=== PATIENT | male | born 1990 | race Caucasian/White ===

== ENCOUNTER 2021-03-15 09:18 | Emergency (ER) | payer OTHER ==
[2021-03-15 09:34] VITALS: BP 130/67
[2021-03-15] MEDS ORDERED: FAMOTIDINE 20 MG TABLET PO STA (09:40)
[2021-03-15] MEDS ORDERED: predniSONE 20 MG TABLET PO STA (09:40)
--- NOTE | 2021-03-15 10:08 | ED Physician Documentation ---
PD HPI SKIN - Stated complaint Stated Complaint: BODY RASH - Chief complaint Chief Complaint: Allergic Rx - History obtained from History obtained from: Patient - Additional information Additional information: Patient complains of rash and itching for the last 2 days. He states it is mainly on his trunk and he has no idea what he is reacting to. He is not on any new medications and has not eaten any unusual foods recently. No other exposures that he can think of. Patient states his throat has felt a little itchy and tight but that he took some Benadryl this morning and it seemed to help with the sensation. It did not take the rash away entirely. No other complaints at this time. No fevers or chills. No nausea or vomiting. No shortness of breath. No swelling of Face or mouth. Review of Systems Ten Systems: 10 systems reviewed and negative Constitutional: reports: Reviewed and negative Eyes: reports: Reviewed and negative Ears: reports: Reviewed and negative Nose: reports: Reviewed and negative Throat: reports: Other (Throat tightness) Cardiac: reports: Reviewed and negative Respiratory: reports: Reviewed and negative GI: reports: Reviewed and negative : reports: Reviewed and negative Skin: reports: Rash Musculoskeletal: reports: Reviewed and negative Neurologic: reports: Reviewed and negative Psychiatric: reports: Reviewed and negative Endocrine: reports: Reviewed and negative Immunocompromised: reports: Reviewed and negative PD PAST MEDICAL HISTORY - Past Medical History Past Medical History: No Cardiovascular: None Respiratory: None Neuro: None Endocrine/Autoimmune: None GI: None : None HEENT: None Psych: None Musculoskeletal: None - Past Surgical History Past Surgical History: No - Present Medications Home Medications: Ambulatory Orders Medication Instructions Recorded Confirmed predniSONE [Deltasone] 60 mg PO DAILY 5 Days #15 tablet 03/15/21 - Allergies Allergies/Adverse Reactions: Allergies Allergy/AdvReac Type Severity Reaction Status Date / Time No Known Drug Allergies Allergy Verified 03/15/21 09:31 - Social History Does the pt smoke?: No Smoking Status: Never smoker Does the pt drink ETOH?: Yes Does the pt have substance abuse?: No - Immunizations Immunizations are current?: Yes PD ED PE NORMAL - Vitals Vital signs reviewed: Yes - General General: Alert and oriented X 3, No acute distress - HEENT HEENT: Atraumatic, PERRL, EOMI, Moist mucous membranes, Pharynx benign - Neck Neck: Supple, no meningeal sign - Cardiac Cardiac: RRR, No murmur - Respiratory Respiratory: No respiratory distress, Clear bilaterally - Derm Derm: Normal color, Warm and dry, Other (Maculopapular rash, fine, with occasional petechiae. Involves trunk only.) - Extremities Extremities: No deformity, No edema - Neuro Neuro: Alert and oriented X 3 - Psych Psych: Normal mood, Normal affect Results - Vitals Vitals: Vital Signs - 24 hr 03/15/21 09:31 Temperature 36.8 C Heart Rate 70 Respiratory 16 Rate Blood Pressure 130/67 O2 Saturation 98 Oxygen O2 Source Room air PD MEDICAL DECISION MAKING - ED course Complexity details: considered differential, d/w patient ED course: Patient was given a dose of prednisone and of Pepcid in the emergency department. He already has Benadryl at home, which she has taken. I am not sure what is reacting to, and he does seem to have potentially a little element of vasculitis along with this. I discussed with the patient the most likely, this will blow over on its own, as I do not find any evidence of a more serious condition causing the symptoms. However, he should take the prednisone as prescribed, as well as the In the nextBenadryl, and if symptoms are not better in few days, he should follow-up at [facility]. We have discussed the usual indications for return Departure - Departure Disposition: 01 Home, Self Care Clinical Impression: Allergic reaction Qualifiers: Encounter type: initial encounter Qualified Code(s): T78.40XA - Allergy, unspecified, initial encounter Condition: Stable Instructions: ED Allergic Reaction General Other Prescriptions: predniSONE [Deltasone] 60 mg PO DAILY 5 Days #15 tablet Comments: It is not clear exactly what you may be reacting to, but your symptoms, along with the lack of other specific symptoms of concern, are most indicative of a reaction of some sort. Please take the prednisone on a daily basis for the next several days, as prescribed. You may take Benadryl with this as well. Please follow-up in [facility] at the end of the week if you are not doing better. Discharge Date/Time: 03/15/21 10:20
== END 2021-03-15 10:20 | disposition home or self-care (01) ==
LOC: ED 09:18
DX: T78.40XA Allergy, unspecified, initial encounter (principal); R21 Rash and other nonspecific skin eruption; R23.3 Spontaneous ecchymoses; X58.XXXA Exposure to other specified factors, initial encounter
CPT/HCPCS: 99282; 99284; A9270; J7512

== ENCOUNTER 2021-06-05 13:18 | Outpatient (CLI) | payer OTHER | END 2021-06-05 13:19 | disposition home or self-care (01) | LOC: RT 13:18 | PROVIDERS: ATTEND Family Medicine | DX: R06.00 Dyspnea, unspecified (principal) | CPT/HCPCS: 94010 ==